=== PATIENT | female | born 1970 | race Caucasian/White ===

== ENCOUNTER 2016-12-27 09:10 | Emergency (ER) | payer BC, OTHER ==
[~2016-12-27] VITALS: Ht 167.6 cm; Wt 104.3 kg
[~2016-12-27 09:10] MED LIST: KCL; LASIX; LEVOTHYROXIN; TYLENOL AND ADVIL
[2016-12-27 09:12] VITALS: BP 119/69
--- NOTE | 2016-12-27 09:13 | NUR ---
Patient ambulated to bed 3. RN evaluating patient at bedside.
[2016-12-27] MEDS ORDERED: SYNTHROID0.125 MG PO (09:17)
[2016-12-27] MEDS ORDERED: ACIPHEX20 M1 PO (09:17)
--- NOTE | 2016-12-27 09:21 | NUR ---
PATIENT PRESENTS TO ED WITH A PRODUCTIVE COUGH X5 DAYS . PT STATES, SHE FEELS SHE ON AND OFF FEVER WELL. . DENIES N/V/D; SKIN IS PINK/WARM/DRY; AAOX4 WITH EVEN AND STEADY GAIT; LUNGS CLEAR BL; HR EVEN AND REGULAR; PATIENT STATES PAIN OF 0/10 AT THIS TIME; VSS; PATIENT POSITIONED FOR COMFORT; HOB ELEVATED; BEDRAILS UP X2; BED DOWN. ER MD MADE AWARE OF PT STATUS. AWAITS MD TUTTLE
[2016-12-27] MEDS ORDERED: KETOROLAC 30 MG/ML VIAL IM ONE (10:15)
[2016-12-27] MEDS ORDERED: PROMETH/CODEINE 6.25-10MG/5ML 5 ML UDC PO ONE (10:15)
--- NOTE | 2016-12-27 10:43 | NUR ---
INFLUENZA SWAB COLLECTED
--- NOTE | 2016-12-27 11:27 | NUR ---
SEMI-FOLWER'S, NO ACTIVE COUGHING NOTED AT THIS TIME--ADMITS BREATHING A LITTLE EASIER--- AWAITS LAB RESULTS--
--- NOTE | 2016-12-27 11:48 | NUR ---
Patient discharged with v/s stable. Written and verbal after care instructions given and explained. Patient alert, oriented and verbalized understanding of instructions. Ambulatory with steady gait. All questions addressed prior to discharge. ID band removed. Patient advised to follow up with PMD. Rx of AZITHROMYCIN/ CODEINE/PROMETHAZINE given. Patient educated on indication of medication including possible reaction and side effects. Opportunity to ask questions provided and answered.
[2016-12-27 11:49] VITALS: BP 132/76
== END 2016-12-27 11:48 | disposition home or self-care (01) ==
LOC: MED 09:10
DX: J40 Bronchitis, not specified as acute or chronic (principal); J02.9 Acute pharyngitis, unspecified; K21.9 Gastro-esophageal reflux disease without esophagitis; E03.9 Hypothyroidism, unspecified; Z88.0 Allergy status to penicillin
CPT/HCPCS: 36415; 71010; 81002; 81025; 87804; 96372; 99285; J1885; Q0092

== ENCOUNTER 2017-04-23 16:08 | Emergency (ER) | payer BC ==
[~2017-04-23] VITALS: Ht 167.6 cm; Wt 102.5 kg
[~2017-04-23 16:08] MED LIST changes: -KCL; -LASIX; +LEVO0.124 PO; +RABE20EC PO
[2017-04-23 16:31] VITALS: BP 152/94
--- NOTE | 2017-04-23 19:35 | NUR ---
PT TAKEN TO OF2
--- NOTE | 2017-04-23 19:48 | NUR ---
Dr. Hartley evaluating patient
[2017-04-23] MEDS ORDERED: KETOROLAC 60 MG/2 ML VIAL IM ONE (19:55)
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
[2017-04-23 21:12] VITALS: BP 122/79
== END 2017-04-23 21:12 | disposition home or self-care (01) ==
LOC: MED 16:08
DX: S16.1XXA Strain of muscle, fascia and tendon at neck level, initial encounter (principal); S46.912A Strain of unspecified muscle, fascia and tendon at shoulder and upper arm level, left arm, initial encounter; S46.911A Strain of unspecified muscle, fascia and tendon at shoulder and upper arm level, right arm, initial encounter; K21.9 Gastro-esophageal reflux disease without esophagitis; E03.9 Hypothyroidism, unspecified; Z88.0 Allergy status to penicillin; V89.2XXA Person injured in unspecified motor-vehicle accident, traffic, initial encounter; Y93.89 Activity, other specified; Y92.828 Other wilderness area as the place of occurrence of the external cause; Y99.8 Other external cause status
CPT/HCPCS: 72040; 73030; 96372; 99284; J1885

== ENCOUNTER 2018-03-21 16:36 | Emergency (ER) | payer BC ==
[~2018-03-21] VITALS: Ht 170.2 cm; Wt 102.5 kg
[~2018-03-21 16:36] MED LIST changes: -RABE20EC PO; +RABE20EC17 PO
[2018-03-21 16:38] VITALS: BP 116/83
--- NOTE | 2018-03-21 16:49 | NUR ---
47/F BIB SELF C/O VOMITING X 14 DAYS, EJD DONE THIS MORNING.PT CAME HERE 6 DAYS AGO WITH SAME S/S. PT STATED BM: LOOSE STOOL X TODAY. HX; FATTY LIVER, CHOLECYSTECTOMY, MITCHEL RENAL CYSTS. SKIN IS PINK/WARM/DRY; AAOX4 WITH EVEN AND STEADY GAIT; LUNGS CLEAR BL. PATIENT STATES PAIN OF 05/01 AT THIS TIME. PATIENT POSITIONED FOR COMFORT; HOB ELEVATED; BEDRAILS UP X2; BED DOWN. ER MADE AWARE OF PT STATUS. Addendum: 03/21/18 at 1655 by [email or web address] C/O EPIGASTRIC PAIN RADIATING TO RUQ ABDOMINAL PAIN 05/01.
--- NOTE | 2018-03-21 17:00 | NUR ---
Patient being evaluated by DR MALONE at bedside.
[2018-03-21] MEDS ORDERED: NACL 0.9% 1,000 ML IV ONE (17:05)
[2018-03-21] MEDS ORDERED: PROCHLORPERAZINE 10 MG/2 ML VIAL IVP ONE (17:05)
--- NOTE | 2018-03-21 17:14 | NUR ---
LAB AT BEDSIDE.
[2018-03-21 17:33] LABS: BASOPHILS # (AUTO) 0.1 K/uL (0.00-0.22); BASOPHILS % (AUTO) 0.8 % (0.0-2.0); EOSINOPHILS # (AUTO) 0.2 K/uL (0-0.4); EOSINOPHILS % (AUTO) 1.9 % (0.0-4.0); HEMATOCRIT 42.5 % (36-48); HEMOGLOBIN 14.3 g/dL (12.0-16.0); LYMPHOCYTES # (AUTO) 3.4 K/uL (2.5-16.5); LYMPHOCYTES % (AUTO) 34.1 % (20.5-51.1); MEAN CORPUSCULAR HEMOGLOBIN 31 pg (27-31); MEAN CORPUSCULAR HGB CONC 34 g/dL (33-37); MEAN CORPUSCULAR VOLUME 93.2 fL (80-94); MONOCYTES # (AUTO) 0.8 K/uL (0.8-1.0); MONOCYTES % (AUTO) 7.7 % (1.7-9.3); NEUTROPHILS # (AUTO) 5.5 K/uL (1.8-7.7); NEUTROPHILS % (AUTO) 55.5 % (42.2-75.2); PLATELET COUNT (AUTO) 293 K/uL (140-450); RED BLOOD CELL COUNT(AUTO) 4.57 MIL/uL (4.20-5.40); WHITE BLOOD COUNT (AUTO) 9.9 K/uL (4.8-10.8)
[2018-03-21 17:40] LABS: ANION GAP 13.3 (8-16); CARBON DIOXIDE 27.7 mmol/L (21-32); CREATININE 0.7 mg/dL (0.6-1.3)
--- NOTE | 2018-03-21 17:42 | NUR ---
PT RETURNED FROM CT.
[2018-03-21 17:46] LABS: ALBUMIN 3.4 g/dL (3.4-5.0); TOTAL BILIRUBIN 0.4 mg/dL (0.0-1.0)
--- NOTE | 2018-03-21 18:09 | NUR ---
Patient discharged with v/s stable. Written and verbal after care instructions given and explained. Patient alert, oriented and verbalized understanding of instructions. Ambulatory with steady gait. All questions addressed prior to discharge. ID band removed. Patient advised to follow up with PMD. Rx of PROCHLORPERAZINE given. Patient educated on indication of medication including possible reaction and side effects. Opportunity to ask questions provided and answered.
[2018-03-21 18:10] VITALS: BP 105/63
[2018-03-21 21:50] LABS: APPEARANCE,URINE CLEAR (CLEAR); BILIRUBIN,URINE NEGATIVE (NEGATIVE); BLOOD, URINE NEGATIVE (NEGATIVE); LEUKOCYTE ESTERASE ,URINE NEGATIVE (NEGATIVE); NITRITE, URINE NEGATIVE (NEGATIVE); PH,URINE 7.5 (5.0-9.0); UGLUCOSE NEGATIVE (NEGATIVE)
[2018-03-21 21:51] LABS: COLOR,URINE STRAW (YELLOW)
== END 2018-03-21 18:09 | disposition home or self-care (01) ==
LOC: MED 16:36
DX: R11.2 Nausea with vomiting, unspecified (principal); R10.9 Unspecified abdominal pain; K76.0 Fatty (change of) liver, not elsewhere classified; R74.0 Nonspecific elevation of levels of transaminase and lactic acid dehydrogenase [LDH]; J45.909 Unspecified asthma, uncomplicated; I10 Essential (primary) hypertension; E03.9 Hypothyroidism, unspecified; Z90.89 Acquired absence of other organs; Z90.710 Acquired absence of both cervix and uterus; Z88.0 Allergy status to penicillin; Z88.2 Allergy status to sulfonamides
CPT/HCPCS: 36415; 74176; 80053; 81003; 81025; 83690; 85025; 96361; 96374; 99285; J0780; J7030

== ENCOUNTER 2018-07-26 10:58 | Inpatient (IN) | payer BC ==
[~2018-07-26] VITALS: Ht 167.6 cm; Wt 103.0 kg
[2018-07-26 11:09] VITALS: BP 122/76
--- NOTE | 2018-07-26 11:10 | NUR ---
PT AMB TO BED 11
--- NOTE | 2018-07-26 11:15 | NUR ---
48Y/F BIB SELF C/O PERSISTANT DRY COUGH X OCT 2017; INTERMITTENT LEFT ANTERIOR CHEST WALL PRESSURE PAIN X 2 DAYS , SOB, DIAPHORETIC; FULL CLEAR SPEECH, SKIN WARM DRY TO TOUCH, NO ACCESSORY MUSCLE USE NOTED AT THIS TIME, NO PEDAL EDEMA OR JVD; SEEN BY HER GI MD AND HAD EGD AND SWALLOW STUDY 2 TO COUGH; BED DOWN; BEDRAIL UP X 1; ER MD AWARE AND NOTIFIED OF PT STATUS. HX---HTN, GERD, FIBROMYALGIA, THYROID, ASTHMA RX---LOTENSIN 20MG QD, Rabeprazole 40MG QD, CYMBALTA 30MG QD, LEVOTHYROXINE 150MCG QD, SINGULAR 10MG HS, ALBUTEROL, PREMARIN 0.625MG QD, MAGNESIUM OXIDE 400MG QD
[2018-07-26] MEDS ORDERED: methylPREDNISolone SS 125 MG/2 ML VIAL IVP ONE (12:10)
[2018-07-26] MEDS ORDERED: KETOROLAC 30 MG/ML VIAL IVP ONE (12:10)
[2018-07-26] MEDS ORDERED: ALBUTEROL SULFATE/IPRATROPIU 3 ML SOL IH ONE (12:10)
[2018-07-26] MEDS ORDERED: LORazepam 2 MG/ML VIAL IVP ONE (12:10)
[2018-07-26 12:36] LABS: BASOPHILS # (AUTO) 0.1 K/uL (0.00-0.22); BASOPHILS % (AUTO) 0.7 % (0.0-2.0); EOSINOPHILS # (AUTO) 0.2 K/uL (0-0.4); EOSINOPHILS % (AUTO) 1.9 % (0.0-4.0); HEMATOCRIT 40.3 % (36-48); HEMOGLOBIN 13.6 g/dL (12.0-16.0); LYMPHOCYTES # (AUTO) 3.5 K/uL (2.5-16.5); LYMPHOCYTES % (AUTO) 37.5 % (20.5-51.1); MEAN CORPUSCULAR HEMOGLOBIN 31 pg (27-31); MEAN CORPUSCULAR HGB CONC 34 g/dL (33-37); MEAN CORPUSCULAR VOLUME 91.9 fL (80-94); MONOCYTES # (AUTO) 0.6 K/uL (0.8-1.0); MONOCYTES % (AUTO) 6.7 % (1.7-9.3); NEUTROPHILS # (AUTO) 4.9 K/uL (1.8-7.7); NEUTROPHILS % (AUTO) 53.2 % (42.2-75.2); PLATELET COUNT (AUTO) 258 K/uL (140-450); RED BLOOD CELL COUNT(AUTO) 4.39 MIL/uL (4.20-5.40); RED CELL DISTRIBUTION WIDTH 13.4 % (11.6-13.7); WHITE BLOOD COUNT (AUTO) 9.3 K/uL (4.8-10.8)
--- NOTE | 2018-07-26 12:42 | NUR ---
ativan 1mg given ivp; waste 1mg
[2018-07-26 12:58] LABS: ALBUMIN 3.3 g/dL (3.4-5.0); ANION GAP 7.5 (8-16); CARBON DIOXIDE 31.6 mmol/L (21-32); CREATININE 0.8 mg/dL (0.6-1.3); POTASSIUM 4.1 mmol/L (3.5-5.1); TOTAL BILIRUBIN 0.4 mg/dL (0.0-1.0)
[2018-07-26 13:22] LABS: PROTHROMBIN TIME 9.9 secs (10.8-13.4)
[2018-07-26] MEDS ORDERED: HYDROcodone/APAP 7.5/325 MG 1 TAB PO PRN (16:00)
[2018-07-26] MEDS ORDERED: ACETAMINOPHEN 325 MG TAB PO PRN (16:00)
[2018-07-26] MEDS ORDERED: KETOROLAC 15 MG/ML VIAL IVP PRN (16:00)
[2018-07-26] MEDS ORDERED: ONDANSETRON 4 MG/2 ML VIAL IM/IVP PRN (16:00)
[2018-07-26] MEDS ORDERED: DOCUSATE SODIUM 100 MG GELCAP PO PRN (16:00)
--- NOTE | 2018-07-26 16:24 | NUR ---
Patient will be admitted to care of DR. MCKEON. Admited to [facility]. Will go to room 111A. Belongings list completed.
--- NOTE | 2018-07-26 16:24 | NUR ---
REPORT GIVEN TO SHERI HOLMAN, MED SURG
[2018-07-26 16:30] VITALS: BP 124/73
--- NOTE | 2018-07-26 16:30 | NUR ---
PATIENT ARRIVED ON UNIT VIA [facility]. PATIENT ABLE TO AMBULATE FROM [facility] TO TELEMETRY BED. APPLIED PATIENT'S TELE MONITOR. PATIENT HAS AN IV SITE NOTED ON HER RIGHT AC 20G SL. PATIENT DOES NOT COMPLAIN OF ANY PAIN. NO SIGNS OF COUGH. PER ER NURSE MELISSA'S REPORT PATIENT HAS A DRY UNPRODUCTIVE COUGH. NO DISTRESS NOTED AT THIS TIME. PATIENT'S VITAL SIGNS WITHIN NORMAL LIMITS. WILL CONTINUE TO MONITOR PATIENT.
[2018-07-26] MEDS: NACL 0.9% 1,000 ML IV SCH (16:34)
--- NOTE | 2018-07-26 16:38 | NUR ---
DR. PLASENCIA ASSESSING PATIENT AT THIS TIME. PATIENT IS ALERT AND ORIENTED X4. WILL CONTINUE TO MONITOR PATIENT.
[2018-07-26 16:47] LABS: CHOL/HDL RATIO 4.5 (1-4.5); MAGNESIUM 1.7 mg/dL (1.8-2.4); PHOSPHORUS 3.7 mg/dL (2.5-4.9); THYROID STIMULATING HORMONE 0.08 uIU/mL (0.34-3.74)
[2018-07-26] MEDS ORDERED: ALBUTEROL SULFATE/IPRATROPIU 3 ML SOL INH PRN (16:50)
[2018-07-26] MEDS ORDERED: PROMETH/CODEINE 6.25-10MG/5ML 5 ML UDC PO PRN (16:50)
[2018-07-26] MEDS ORDERED: LORATADINE 10 MG TAB PO SCH (16:56)
[2018-07-26] MEDS ORDERED: ATORVASTATIN 20 MG TAB PO SCH (17:00)
[2018-07-26] MEDS ORDERED: ASPIRIN 325 MG TAB PO SCH (17:00)
[2018-07-26] MEDS ORDERED: MONT10TA35 PO (18:16)
[2018-07-26] MEDS ORDERED: MAGN241.1 PO (18:16)
[2018-07-26] MEDS ORDERED: DULO30EC PO (18:16)
[2018-07-26] MEDS ORDERED: ORE25 PO (18:16)
[2018-07-26] MEDS ORDERED: BENA20TA11 PO (18:16)
[2018-07-26] MEDS ORDERED: PRE.625 PO (18:16)
[2018-07-26] MEDS ORDERED: PHEN30CA15 PO (18:16)
[2018-07-26] MEDS ORDERED: LEVO0.155 PO (18:16)
[2018-07-26] MEDS: ALBUTEROL SULFATE/IPRATROPIU 3 ML SOL IH SCH (19:17)
--- NOTE | 2018-07-26 19:20 | NUR ---
STOP THE HHN TX, DUE TO HR INCREASED TO FAST, AND PT COME TO ER WITH HR PALPITATION AND AFTER COUPLE MIN AFTER THE TX SHE FELT THE SAME.
--- NOTE | 2018-07-26 19:30 | NUR ---
GAVE REPORT TO NIGHTSHIFT NURSE AT BEDSIDE. PATIENT IS IN STABLE CONDITION.
[2018-07-26 20:15] VITALS: BP 107/58
--- NOTE | 2018-07-26 20:15 | NUR ---
SEEN PT AWAKE, ALERT AND ORIENTED RESTING IN BED. PT STATES SHE WAS SWEATING A LOT EARLIER BUT NOT RIGHT NOW. INITIAL ASSESSMENT DONE. PT'S COUGHING IN BETWEEN CONVERSATION. PT SAID SHE HAS PRODUCTIVE COUGH. VITAL SIGNS CHECKED. PT DENIES ANY DISCOMFORT AT THIS TIME. SAFETY ENSURED. SEQUENTIAL CONNECTED AND TURNED ON. CALL LIGHT W/IN REACH.
[2018-07-26] MEDS: guaiFENesin 600 MG TABER PO SCH (20:55)
[2018-07-26] MEDS: MONTELUKAST SODIUM 10 MG TAB PO SCH (20:55)
--- NOTE | 2018-07-26 20:55 | NUR ---
SEEN PT AWAKE. MEDICATIONS GIVEN ORDERED. TEACHINGS PROVIDED. PT STATES SHE'S SWEATING AGAIN. ASKED PT IF ON ANY NEW MEDICATIONS LIKE HORMONE PILL. SHE SAID THE PREMARIN WAS PRESCRIBED DUE TO HER HOT FLUSHES BECAUSE SHE'S ON HER MENOPAUSAL RIGHT NOW. BUT SHE SAID, SHE STARTED ON IT 6 WEEKS AGO ALREADY. PT STILL COUGHING. OFFERED PHENERGAN W/ CODEINE AND SAID "I'D LIKE TO HAVE IT BECAUSE I'M GOING TO SLEEP."
--- NOTE | 2018-07-26 22:58 | NUR ---
PT CALLED AND SEEN. PT STATES SHE HASN'T STOP COUGHING SINCE THE LAST TIME SHE TOOK HER COUGH MEDICINE AND IF THERE'S ANY OTHER MEDICINE THAT SHE COULD TAKE BECAUSE SHE CAN'T SLEEP FROM TOO MUCH COUGHING. WILL NOTIFY .
--- NOTE | 2018-07-26 23:00 | NUR ---
SPOKE TO DR SANTANA RESIDENT REGARDING PT'S CONCERN AND SHE SAID, "I'LL TAKE A LOOK AT HER MEDICATIONS SOON I'M DONE W/ THE NEW PATIENT." WILL INFORM PT.
[2018-07-27] MEDS ORDERED: BENZONATATE 100 MG CAPLF PO PRN (00:25)
--- NOTE | 2018-07-27 00:30 | NUR ---
SPOKE TO DR SANTANA (RESIDENT) REGARDING FOLLOW UP ON PT'S COUGH SITUATION. SHE SAID SHE'LL ASK HER PROOFREADER.
[2018-07-27 00:50] VITALS: BP 100/61
[2018-07-27] MEDS: guaiFENesin 20 MG/ML UDC PO PRN ×2 (00:58→06:00)
[2018-07-27] MEDS: NACL 0.9% 1,000 ML IV SCH ×3 (03:23→21:04)
[2018-07-27 03:30] VITALS: BP 111/70
--- NOTE | 2018-07-27 03:30 | NUR ---
SEEN PT ASLEEP BUT EASILY AROUSABLE. PT STARTS TO COMPLAIN OF CHEST PAIN. VITAL SIGNS CHECKED. PT MEDICATED W/ TORADOL IVP ORDERED. PT KEPT COMFORTABLE. WILL CONTINUE TO MONITOR.
--- NOTE | 2018-07-27 05:58 | NUR ---
SEEN PT ASLEEP BUT EASILY AROUSABLE. PT GIVEN SYNTHROID AND PT ASKED FRO COUGH SYRUP. PT GIVEN MEDICATION ORDERED W/ TEACHINGS. PT DENIES ANY OTHER NEEDS.
[2018-07-27 06:21] LABS: T4 (THYROXINE) 10.6 ug/dL (4.5-12.0)
[2018-07-27] MEDS ORDERED: LEVOTHYROXINE 0.075 MG TAB PO SCH (06:30)
[2018-07-27] MEDS ORDERED: LEVOTHYROXINE 0.025 MG TAB PO SCH ×2 (06:30)
[2018-07-27] MEDS ORDERED: LEVOTHYROXINE 0.025 MG, LEVOTHYROXINE 0.1 MG PO SCH ×2 (06:30)
--- NOTE | 2018-07-27 07:20 | NUR ---
REPORT GIVEN TO DAYSHIFT NURSE.
[2018-07-27 07:23] LABS: HEMATOCRIT 38.6 % (36-48); HEMOGLOBIN 12.9 g/dL (12.0-16.0); MEAN CORPUSCULAR HEMOGLOBIN 31 pg (27-31); MEAN CORPUSCULAR HGB CONC 33 g/dL (33-37); MEAN CORPUSCULAR VOLUME 92.2 fL (80-94); PLATELET COUNT (AUTO) 282 K/uL (140-450); RED BLOOD CELL COUNT(AUTO) 4.19 MIL/uL (4.20-5.40); RED CELL DISTRIBUTION WIDTH 13.6 % (11.6-13.7)
[2018-07-27 07:26] LABS: ANION GAP 10.4 (8-16); CARBON DIOXIDE 25.7 mmol/L (21-32); CREATININE 0.6 mg/dL (0.6-1.3); POTASSIUM 4.1 mmol/L (3.5-5.1)
--- NOTE | 2018-07-27 07:55 | NUR ---
PATIENT AWAKE, ALERT. RESPIRATION EVEN, UNLABOR ON ROOM AIR. SKIN DRY AND WARM ON THE TOUCH. IV PATENT AND INTACT. DENIED CP, SOB AT THIS TIME. LUNGS SOUND CLEAR THROUGHOUT. BOWEL SOUND ACTIVE. PLAN OF CARE WAS DISCUSSED WITH PATIENT. BED AT LOW POSITION, SIDE RAILS UP. CALL LIGHT WITHIN REACH.
[2018-07-27 08:00] VITALS: BP 109/61
[2018-07-27] MEDS: ALBUTEROL SULFATE/IPRATROPIU 3 ML SOL IH SCH ×2 (08:11→20:36)
[2018-07-27] MEDS: guaiFENesin 600 MG TABER PO SCH ×2 (08:50→21:01)
[2018-07-27] MEDS: DULoxetine 30 MG CAPDR PO SCH (08:51)
[2018-07-27] MEDS: ATORVASTATIN 20 MG TAB PO SCH (08:51)
[2018-07-27] MEDS: MAGNESIUM OXIDE 400 MG TAB PO SCH (08:51)
[2018-07-27] MEDS: HYDROCHLOROTHIAZIDE 25 MG TAB PO SCH (08:51)
[2018-07-27] MEDS: FAMOTIDINE 20 MG TAB PO SCH (08:51)
[2018-07-27] MEDS: LORATADINE 10 MG TAB PO SCH (08:51)
[2018-07-27] MEDS: ASPIRIN 81 MG TAB.CHEW PO SCH (08:52)
[2018-07-27] MEDS: PREMARIN 0.625 MG PO SCH (08:54)
[2018-07-27 08:59] LABS: LYMPHOCYTES % (MANUAL) 16 % (20-46); MONOCYTES % (MANUAL) 3 % (5-12)
[2018-07-27] MEDS ORDERED: BENAZEPRIL 20 MG TAB PO SCH (09:00)
[2018-07-27] MEDS ORDERED: ESTROGENS CONJUGATED 0.625 MG TAB PO SCH (09:00)
[2018-07-27] MEDS ORDERED: PHENTERMINE HCL 37.5 MG PO SCH (09:00)
--- NOTE | 2018-07-27 09:08 | NUR ---
PATIENT HAS BEEN SCREENED AND CATEGORIZED HIGH NUTRITION RISK. PATIENT WILL BE SEEN WITHIN 1-2 DAYS OF ADMISSION. 07/27/18 07/28/[address]
[2018-07-27] MEDS ORDERED: MAG SULF 2000 MG/WATER PREMIX 50 ML IV SCH (09:20)
--- NOTE | 2018-07-27 10:15 | NUR ---
PATIENT AWAKE, ALERT. RESPIRATION EVEN, UNLABOR ON ROOM AIR. NO DISTRESS NOTED AT THIS TIME. FAMILY AT BEDSIDE. CALL LIGHT WITHIN REACH
--- NOTE | 2018-07-27 11:44 | NUR ---
PATIENT AWAKE, ALERT. RESPIRATION EVEN, UNLABOR ON ROOM AIR. DENIED PAIN, SOB AT THIS TIME. CALL LIGHT WITHIN REACH. FAMILY AT BEDSIDE
[2018-07-27 12:00] VITALS: BP 125/69
--- NOTE | 2018-07-27 13:32 | NUR ---
CM NOTE PER CURRICULUM WRITER MARY JO PENDING REF# [id number] FAX REVIEWS TO [phone] PH# [phone]. ADMISSION CHART REVIEW DONE. INITIAL REVIEW FAXED TO [facility] [phone] PH# [phone].
--- NOTE | 2018-07-27 13:45 | NUR ---
PATIENT AWAKE, ALERT. COMPLAINED OF SOB. SINUS TACH ON CYTOLOGY SUPERVISOR. PATIENT WAS PLACED ON O2 2L VIA NASAL CANNULA. WILL CONTINUE TO MONITOR
--- NOTE | 2018-07-27 15:20 | NUR ---
07/27/18 RD INITIAL ASSESSMENT COMPLETED PLEASE REFER TO NUTRITION ASSESSMENT UNDER CARE ACTIVITY FOR ESTIMATED NUTRITIONAL NEEDS. 1. RECOMMEND CCHO 60, CARDIAC DIET TOLERATED. 2. RECOMMEND GLUCERNA BID IF FOOD IS NOT TOLERATED. 3. RD TO FOLLOW-UP 5-7 DAYS, LOW RISK TENNILLE YAO, RD
[2018-07-27 16:00] VITALS: BP 107/64
--- NOTE | 2018-07-27 16:00 | NUR ---
PATIENT AWAKE, ALERT. RESPIRATION EVEN, UNLABOR ON 2L NC . DENIED PAIN, SOB. VS IS STABLE. NO DISTRESS NOTED AT THIS TIME. FAMILY AT BEDSIDE. CALL LIGHT WITHIN REACH
--- NOTE | 2018-07-27 18:15 | NUR ---
PATIENT AWAKE, ALERT. RESPIRATION EVEN, UNLABOR ON 2L NC. DENIED SOB, CP AT THIS TIME. NO DISTRESS NOTED. CALL LIGHT WITHIN REACH
--- NOTE | 2018-07-27 19:31 | NUR ---
RECEIVED REPORT FROM CÉSAR RN AT BEDSIDE FOR CONTINUITY OF CARE, PT IN STABLE CONDITION SITTING UP IN BED IV INTACT AND RUNNING N/S AT 100MLS/HR. PT HAS NO C/O OF PAIN AND FAMILY AT BEDSIDE.
--- NOTE | 2018-07-27 19:31 | NUR ---
ENDORSEMENT GIVEN TO COMMAND CENTER ANALYST NURSE. PATIENT IS STABLE AT THIS TIME
[2018-07-27 20:00] VITALS: BP 104/61
--- NOTE | 2018-07-27 21:00 | NUR ---
PT IN LOW BED, WITH CALL PLAZA IN REACH. PT C/O OF DRY COUGH INTERMITTENTLY. PT GIVEN MUCINEX FOR COUGH AND TO HELP LOOSEN PHGLEM. PT ALSO ORDERED SINGULAR FOR ASTHMA AND ALLERGIES. PT STILL HAS 2 L 02 VIA N/C, LUNGS CLEAR AND EXPANDED SYMMETRICALLY. PT DENIES PAIN, NO C/O VOICED. PT IV SITE FLUSHED PATEN. BED LOW CALL PLAZA IN REACH AND ALL REQUESTED NEEDS ATTENDED BY STAFF.
[2018-07-27] MEDS: MONTELUKAST SODIUM 10 MG TAB PO SCH (21:02)
--- NOTE | 2018-07-27 23:00 | NUR ---
PT SLEEPING SOUNDLY, CALL PLAZA IN REACH, FREQUENT CHECKS RENDERED.
[2018-07-28] VITALS: BP 105/62
--- NOTE | 2018-07-28 02:00 | NUR ---
PT SLEEPING SOUNDLY, CALL PLAZA IN REACH.
[2018-07-28 04:00] VITALS: BP 110/49
--- NOTE | 2018-07-28 04:00 | NUR ---
P R R MAX AWARE OF INCREASED WBC FROM PT LAB WORKS. UA ORDERED. PT V/S FOLLOWS T97.9 B/P /110/49 P 86 R 20 97%. PT MADE AWARE TO GIVE URINE FOR UA
--- NOTE | 2018-07-28 06:00 | NUR ---
PT C/O 7/10 PAIN GIVEN NORCO PO/PRN , PT C\O PAIN OF 7/10 HEADACHE. PT GIVEN PRN NORCO.
[2018-07-28] MEDS: NACL 0.9% 1,000 ML IV SCH (06:25)
[2018-07-28 06:29] LABS: BASOPHILS # (AUTO) 0.1 K/uL (0.00-0.22); BASOPHILS % (AUTO) 0.6 % (0.0-2.0); EOSINOPHILS # (AUTO) 0.3 K/uL (0-0.4); EOSINOPHILS % (AUTO) 2.2 % (0.0-4.0); HEMATOCRIT 35.9 % (36-48); HEMOGLOBIN 11.7 g/dL (12.0-16.0); LYMPHOCYTES % (AUTO) 45.9 % (20.5-51.1); MEAN CORPUSCULAR HEMOGLOBIN 30 pg (27-31); MEAN CORPUSCULAR HGB CONC 33 g/dL (33-37); MEAN CORPUSCULAR VOLUME 92.6 fL (80-94); MONOCYTES # (AUTO) 0.5 K/uL (0.8-1.0); MONOCYTES % (AUTO) 4.2 % (1.7-9.3); NEUTROPHILS # (AUTO) 6.2 K/uL (1.8-7.7); NEUTROPHILS % (AUTO) 47.1 % (42.2-75.2); PLATELET COUNT (AUTO) 240 K/uL (140-450); RED BLOOD CELL COUNT(AUTO) 3.87 MIL/uL (4.20-5.40); RED CELL DISTRIBUTION WIDTH 13.7 % (11.6-13.7)
--- NOTE | 2018-07-28 06:30 | NUR ---
PT VOMITED A MODERATE AMT OF BILE AND WAS GIVEN ZOFRAN IVP.
[2018-07-28 06:36] LABS: ANION GAP 7.5 (8-16); CARBON DIOXIDE 27.6 mmol/L (21-32); CREATININE 0.7 mg/dL (0.6-1.3); POTASSIUM 4.1 mmol/L (3.5-5.1)
[2018-07-28 06:46] LABS: MAGNESIUM 1.9 mg/dL (1.8-2.4); PHOSPHORUS 3.5 mg/dL (2.5-4.9)
[2018-07-28] MEDS: ALBUTEROL SULFATE/IPRATROPIU 3 ML SOL IH SCH (07:15)
--- NOTE | 2018-07-28 07:45 | NUR ---
PATIENT AWAKE, ALERT. RESPIRATION EVEN, UNLABOR ON ROOM AIR. SKIN DRY AND WARM. IV PATENT AND INTACT. NO DISTRESS NOTED AT THIS TIME. PLAN OF CARE WAS DISCUSSED WITH PATIENT. BED AT LOW POSITION, SIDE RAILS UP. CALL LIGHT WITHIN REACH.
[2018-07-28 07:53] LABS: APPEARANCE,URINE CLEAR (CLEAR); BILIRUBIN,URINE NEGATIVE (NEGATIVE); BLOOD, URINE NEGATIVE (NEGATIVE); COLOR,URINE YELLOW (YELLOW); LEUKOCYTE ESTERASE ,URINE TRACE (NEGATIVE); NITRITE, URINE NEGATIVE (NEGATIVE); UGLUCOSE NEGATIVE (NEGATIVE)
[2018-07-28] MEDS ORDERED: ATOR20TA40 PO (07:58)
[2018-07-28] MEDS ORDERED: ASPI81CT95 PO (07:58)
[2018-07-28 07:59] LABS: BARBITURATE, URINE NEG. ng/ml (NEG <=200); BENZODIAZEPINE, URINE NEG. ng/mL (NEG <=200); CANNABINOID, URINE NEG. ng/mL (NEG <=50); COCAINE, URINE NEG. ng/mL (NEG <=300); OPIATE, URINE NEG. ng/mL (NEG <=2000); PHENCYCLIDINE SCREEN,URINE NEG. ng/mL (NEG <=25)
[2018-07-28] MEDS ORDERED: LORA10TA19 PO (07:59)
[2018-07-28 08:00] VITALS: BP 131/62
[2018-07-28 08:03] LABS: RBC,URINE 0-5 (RARE) /HPF (0-5)
[2018-07-28] MEDS ORDERED: FAMO20TA13 PO (08:15)
[2018-07-28] MEDS: DULoxetine 30 MG CAPDR PO SCH (08:42)
[2018-07-28] MEDS: ATORVASTATIN 20 MG TAB PO SCH (08:42)
[2018-07-28] MEDS: MAGNESIUM OXIDE 400 MG TAB PO SCH (08:42)
[2018-07-28] MEDS: FAMOTIDINE 20 MG TAB PO SCH (08:42)
[2018-07-28] MEDS: guaiFENesin 600 MG TABER PO SCH (08:42)
[2018-07-28] MEDS: ASPIRIN 81 MG TAB.CHEW PO SCH (08:43)
[2018-07-28] MEDS: LORATADINE 10 MG TAB PO SCH (08:43)
[2018-07-28] MEDS: HYDROCHLOROTHIAZIDE 25 MG TAB PO SCH (08:43)
[2018-07-28] MEDS: PREMARIN 0.625 MG PO SCH (08:44)
--- NOTE | 2018-07-28 09:49 | NUR ---
DISCHARGE INSTRUCTION AND PRESCRIPTIONS WERE GIVEN AND EXPLAINED TO THE PATIENT. PATIENT VERBALIZED UNDERSTANDING. IV WAS REMOVED, CATHETER INTACT, NO ACTIVE BLEEDING SEEN. TOWEL HEMMER WAS REMOVED.
--- NOTE | 2018-07-28 10:04 | NUR ---
PATIENT WAS ESCORTED OUT BY STAFF. ALL BELONGINGS WERE TAKEN WITH THE PATIENT. PATIENT IS STABLE AT THIS TIME.
--- NOTE | 2018-07-29 07:50 | NUR ---
FAXED DISCHARGE SUMMARY TO [facility] [phone]
== END 2018-07-28 10:05 | disposition home or self-care (01) | DRG 204 ==
LOC: MED 10:58 → MTU 15:59
PROVIDERS: ADMIT General Practice; ATTEND General Practice
DX: R06.03 Acute respiratory distress (principal); R07.9 Chest pain, unspecified; J45.909 Unspecified asthma, uncomplicated; E03.9 Hypothyroidism, unspecified; K21.9 Gastro-esophageal reflux disease without esophagitis; F41.9 Anxiety disorder, unspecified; E66.01 Morbid (severe) obesity due to excess calories; T46.4X5A Adverse effect of angiotensin-converting-enzyme inhibitors, initial encounter; I11.9 Hypertensive heart disease without heart failure; M54.12 Radiculopathy, cervical region; K76.0 Fatty (change of) liver, not elsewhere classified; N28.1 Cyst of kidney, acquired; R74.0 Nonspecific elevation of levels of transaminase and lactic acid dehydrogenase [LDH]; Z88.0 Allergy status to penicillin; Z88.8 Allergy status to other drugs, medicaments and biological substances; Z79.899 Other long term (current) drug therapy; Z90.710 Acquired absence of both cervix and uterus; Z68.36 Body mass index [BMI] 36.0-36.9, adult; Y92.89 Other specified places as the place of occurrence of the external cause; Z87.01 Personal history of pneumonia (recurrent)
CPT/HCPCS: 36415; 71045; 76700; 80048; 80053; 80305; 81001; 83036; 83690; 83735; 83880; 84100; 84436; 84443; 84479; 84484; 85025; 85379; 85610; 85730; 87081; 87086; 93005; 94640; 96374; 96375; 99285; J1885; J2060; J2405; J2930; J3475; J7030; J7620; Q0092

== ENCOUNTER 2018-10-19 06:29 | Emergency (ER) | payer BC ==
[~2018-10-19] VITALS: Ht 170.2 cm; Wt 102.5 kg
[~2018-10-19 06:29] MED LIST changes: +ASPI81CT95 PO; +ATOR20TA40 PO; +DULO30EC PO; +FAMO20TA13 PO; -LEVO0.124 PO; -LEVOTHYROXIN; +LORA10TA19 PO; +MAGN241.1 PO; +MONT10TA35 PO; +ORE25 PO; +PRE.625 PO; -RABE20EC17 PO; -TYLENOL AND ADVIL
[2018-10-19 06:34] VITALS: BP 138/93
[2018-10-19 06:56] VITALS: BP 138/93
== END 2018-10-19 06:57 | disposition home or self-care (01) ==
LOC: MED 06:29
DX: T78.40XA Allergy, unspecified, initial encounter (principal); J45.909 Unspecified asthma, uncomplicated; E11.9 Type 2 diabetes mellitus without complications; I10 Essential (primary) hypertension; E03.9 Hypothyroidism, unspecified; Z79.84 Long term (current) use of oral hypoglycemic drugs; Z88.0 Allergy status to penicillin; Z88.2 Allergy status to sulfonamides; Z79.82 Long term (current) use of aspirin; Z79.899 Other long term (current) drug therapy; Z90.49 Acquired absence of other specified parts of digestive tract; Z90.710 Acquired absence of both cervix and uterus; X58.XXXA Exposure to other specified factors, initial encounter
CPT/HCPCS: 99283

== ENCOUNTER 2019-04-24 13:11 | Emergency (ER) | payer BC ==
[~2019-04-24] VITALS: Ht 170.2 cm; Wt 105.0 kg
[2019-04-24 13:16] VITALS: BP 136/84
--- NOTE | 2019-04-24 14:36 | NUR ---
PT ambulated to bed 05.
--- NOTE | 2019-04-24 14:40 | NUR ---
BIB SELF. AAO X4 C/O RT FLANK PAIN 910 RADIATING TO R LOWER ABDOMEN X 1 WEEK, DENIES TRAUMA NOTED. + NAUSEA, -VOMITING, -DIARRHEA. PT DENIES FEVER, SOB. PT STATES SHE GETS CHILLS AND SWEATY AT TIMES. HOB UP. BED SIDE RAILS UP X1. ON LOW BED POSITION ,LOCKED. ER MADE AWARE OF PT STATUS.
[2019-04-24] MEDS ORDERED: NACL 0.9% 1,000 ML IV SCH (15:15)
[2019-04-24] MEDS ORDERED: NACL 0.9% 1,000 ML IV ONE (15:15)
[2019-04-24] MEDS ORDERED: PROMETHAZINE 25 MG/ML VIAL IM ONE (15:15)
[2019-04-24] MEDS ORDERED: MORPHINE SULFATE 4 MG/ML SYR IVP ONE (15:15)
[2019-04-24] MEDS ORDERED: KETOROLAC 30 MG/ML VIAL IVP ONE (15:15)
--- NOTE | 2019-04-24 15:15 | NUR ---
DR NARAYAN AT BEDSIDE FOR PT EVALUATION
[2019-04-24 15:49] LABS: APPEARANCE,URINE SL CLOUDY (CLEAR); BILIRUBIN,URINE NEGATIVE (NEGATIVE); BLOOD, URINE NEGATIVE (NEGATIVE); COLOR,URINE YELLOW (YELLOW); LEUKOCYTE ESTERASE ,URINE TRACE (NEGATIVE); NITRITE, URINE NEGATIVE (NEGATIVE); PH,URINE 6.5 (5.0-9.0); UGLUCOSE NEGATIVE (NEGATIVE)
[2019-04-24 15:53] LABS: BASOPHILS # (AUTO) 0.1 K/uL (0.00-0.22); BASOPHILS % (AUTO) 0.8 % (0.0-2.0); EOSINOPHILS # (AUTO) 0.2 K/uL (0-0.4); EOSINOPHILS % (AUTO) 1.7 % (0.0-4.0); HEMATOCRIT 43.1 % (36-48); HEMOGLOBIN 14.4 g/dL (12.0-16.0); LYMPHOCYTES # (AUTO) 4.2 K/uL (2.5-16.5); MEAN CORPUSCULAR HEMOGLOBIN 31 pg (27-31); MEAN CORPUSCULAR HGB CONC 33 g/dL (33-37); MONOCYTES # (AUTO) 0.9 K/uL (0.8-1.0); MONOCYTES % (AUTO) 7.8 % (1.7-9.3); NEUTROPHILS # (AUTO) 5.8 K/uL (1.8-7.7); NEUTROPHILS % (AUTO) 51.7 % (42.2-75.2); PLATELET COUNT (AUTO) 314 K/uL (140-450); RED BLOOD CELL COUNT(AUTO) 4.68 MIL/uL (4.20-5.40); RED CELL DISTRIBUTION WIDTH 14.3 % (11.6-13.7); WHITE BLOOD COUNT (AUTO) 11.2 K/uL (4.8-10.8)
[2019-04-24 15:58] LABS: ANION GAP 12.1 (8-16); CREATININE 0.9 mg/dL (0.6-1.3); POTASSIUM 4.1 mmol/L (3.5-5.1)
[2019-04-24 16:04] LABS: ALBUMIN 3.8 g/dL (3.4-5.0); TOTAL BILIRUBIN 0.6 mg/dL (0.0-1.0)
[2019-04-24 16:19] LABS: RBC,URINE 0-5 /HPF (0-5)
--- NOTE | 2019-04-24 19:15 | NUR ---
TPt report given to MANDA HIGHTOWER. Transfer of care at this time.
--- NOTE | 2019-04-24 19:16 | NUR ---
RECEIVED REPORT AT BEDSIDE FROM MANDA BLUM, PT RESTING IN BED. VSS.
[2019-04-24] MEDS ORDERED: LEVOFLOXACIN 500 MG TAB PO ONE (19:30)
--- NOTE | 2019-04-24 19:37 | NUR ---
Farzad lawrence in [facility] - 04/24/19 at [address] Waldron evaluating patient at bedside.
--- NOTE | 2019-04-24 19:38 | NUR ---
evaluating patient at bedside.
[2019-04-24 20:00] VITALS: BP 143/85
--- NOTE | 2019-04-24 20:00 | NUR ---
Patient discharged with v/s stable. Written and verbal after care instructions given and explained. Patient alert, oriented and verbalized understanding of instructions. Ambulatory with steady gait. All questions addressed prior to discharge. ID band removed. Patient advised to follow up with PMD. Rx of LEVAQUIN 500MG, TRAMADOL 50MG, FLOMAX 0.4MG given. Patient educated on indication of medication including possible reaction and side effects. Opportunity to ask questions provided and answered.
--- NOTE | 2019-04-27 12:21 | NUR ---
Late entry. 0.9 NS IV bolus completed at 1725. 0.9 NS IV 100 ml/hr infused until discharge at 1999.
== END 2019-04-24 20:00 | disposition home or self-care (01) ==
LOC: MED 13:11
DX: N39.0 Urinary tract infection, site not specified (principal); J45.909 Unspecified asthma, uncomplicated; E11.9 Type 2 diabetes mellitus without complications; I10 Essential (primary) hypertension; E03.9 Hypothyroidism, unspecified; Z79.82 Long term (current) use of aspirin; Z79.899 Other long term (current) drug therapy; Z88.0 Allergy status to penicillin; Z88.2 Allergy status to sulfonamides; Z79.84 Long term (current) use of oral hypoglycemic drugs; Z87.442 Personal history of urinary calculi
CPT/HCPCS: 36415; 74176; 80053; 81001; 81025; 82150; 82948; 83690; 84703; 85025; 87086; 96372; 96374; 96375; 99284; J1885; J2270; J2550; J7030

== ENCOUNTER 2019-08-16 15:20 | Emergency (ER) | payer BC ==
[~2019-08-16] VITALS: Ht 170.2 cm; Wt 108.0 kg
[~2019-08-16 15:20] MED LIST changes: -PRE.625 PO
[2019-08-16 15:30] VITALS: BP 108/78
[2019-08-16 16:03] VITALS: BP 110/70
== END 2019-08-16 16:04 | disposition home or self-care (01) ==
LOC: MED 15:20
DX: J06.9 Acute upper respiratory infection, unspecified (principal); J45.909 Unspecified asthma, uncomplicated; E11.9 Type 2 diabetes mellitus without complications; I10 Essential (primary) hypertension; Z79.899 Other long term (current) drug therapy; Z88.0 Allergy status to penicillin; Z88.2 Allergy status to sulfonamides
CPT/HCPCS: 99283

== ENCOUNTER 2019-09-08 15:06 | Emergency (ER) | payer BC ==
[~2019-09-08] VITALS: Ht 170.2 cm; Wt 108.9 kg
[2019-09-08 15:14] VITALS: BP 112/80
[2019-09-08] MEDS ORDERED: LEVO0.124 PO (15:21)
[2019-09-08] MEDS ORDERED: METF-350 PO (15:21)
--- NOTE | 2019-09-08 15:22 | NUR ---
TO LOBBY AWAITING BED IN ED
--- NOTE | 2019-09-08 15:35 | NUR ---
PATIENT AMBULATED TO BED 4.
--- NOTE | 2019-09-08 15:48 | NUR ---
BIB DAUGHTER 47 YR FEMALE W/ C/O FEVER, CHILLS, GEN BODY ACHE X 2 DAYS. TOOK TYLENOL W/O RELEIF. HX OF FIBROMYALGIA. RECHECKED TEMPERATURE 99.8 TEMPORAL. BED AT LOWEST SETTINGS, SIDE RAILS UP X2. COOLING MEASURES APPLIED
[2019-09-08] MEDS ORDERED: NACL 0.9% 1,000 ML IV ONE ×2 (17:15)
[2019-09-08] MEDS ORDERED: KETOROLAC 15 MG/ML VIAL IVP ONE (17:15)
[2019-09-08] MEDS ORDERED: LEVOFLOXACIN 500 MG/D5W PREMIX 100 ML IV ONE (17:15)
[2019-09-08 18:21] LABS: BASOPHILS # (AUTO) 0.1 K/uL (0.00-0.22); BASOPHILS % (AUTO) 0.4 % (0.0-2.0); EOSINOPHILS % (AUTO) 0.2 % (0.0-4.0); HEMATOCRIT 41.5 % (36-48); HEMOGLOBIN 13.6 g/dL (12.0-16.0); LYMPHOCYTES % (AUTO) 15.6 % (20.5-51.1); MEAN CORPUSCULAR HEMOGLOBIN 31 pg (27-31); MEAN CORPUSCULAR HGB CONC 33 g/dL (33-37); MEAN CORPUSCULAR VOLUME 93.7 fL (80-94); MONOCYTES # (AUTO) 1.4 K/uL (0.8-1.0); MONOCYTES % (AUTO) 10.7 % (1.7-9.3); NEUTROPHILS # (AUTO) 9.4 K/uL (1.8-7.7); NEUTROPHILS % (AUTO) 73.1 % (42.2-75.2); PLATELET COUNT (AUTO) 265 K/uL (140-450); RED BLOOD CELL COUNT(AUTO) 4.42 MIL/uL (4.20-5.40); RED CELL DISTRIBUTION WIDTH 14.9 % (11.6-13.7); WHITE BLOOD COUNT (AUTO) 12.8 K/uL (4.8-10.8)
[2019-09-08 19:04] LABS: ANION GAP 14.3 (8-16); CARBON DIOXIDE 24.8 mmol/L (21-32); POTASSIUM 4.1 mmol/L (3.5-5.1)
[2019-09-08 19:05] LABS: ALBUMIN 3.2 g/dL (3.4-5.0); CREATININE 0.9 mg/dL (0.6-1.3)
--- NOTE | 2019-09-08 19:08 | NUR ---
Report given to MANDA Calero
[2019-09-08 20:00] VITALS: BP 112/67
--- NOTE | 2019-09-08 20:00 | NUR ---
DISCHARGE PAPERS GIVEN TO PT. PT STAETES RELIEF. VSS. RX OF MOTRIN, TYLENOL AND CIPRO GIVEN. SIDE EFFECTS EXPLAINED. INSTRUCTED TO F/U WITH PCP AND WHEN TO RETURN TO ER. PT VERBALLIZED UNDERSTANDING OF DC INSTRUCTIONS. ALL QUESTIONS ANSWERED.
== END 2019-09-08 20:00 | disposition home or self-care (01) ==
LOC: MED 15:06
DX: N39.0 Urinary tract infection, site not specified (principal); J45.909 Unspecified asthma, uncomplicated; E11.9 Type 2 diabetes mellitus without complications; I10 Essential (primary) hypertension; Z86.39 Personal history of other endocrine, nutritional and metabolic disease; Z90.710 Acquired absence of both cervix and uterus; Z98.890 Other specified postprocedural states; Z79.899 Other long term (current) drug therapy; Z88.0 Allergy status to penicillin; Z88.2 Allergy status to sulfonamides; R00.0 Tachycardia, unspecified
CPT/HCPCS: 36415; 80053; 81002; 81025; 83605; 85025; 87040; 87086; 87186; 96365; 96375; 99283; J1885; J1956; J7030

== ENCOUNTER 2019-10-27 07:17 | Emergency (ER) | payer BC ==
[~2019-10-27] VITALS: Ht 170.2 cm; Wt 103.0 kg
[~2019-10-27 07:17] MED LIST changes: -ASPI81CT95 PO; -ATOR20TA40 PO; -FAMO20TA13 PO; +LEVO0.124 PO; -LORA10TA19 PO; +METF-350 PO; -MONT10TA35 PO; -ORE25 PO
[2019-10-27 07:28] VITALS: BP 106/72
--- NOTE | 2019-10-27 07:37 | NUR ---
PT C/O LOWER BACK TENDERNESS, SUPRAPUBIC PAIN, DYSURIA, +N/V X COUPLE DAYS. PAIN 8/10 AT THIS TIME. DENIES URINARY RETENTION. URINE COLORED ORANGE, NO FOUL ODOR. VS STABLE. PT ALERT AND AWAKE, AMBULATORY WITH STEADY GAIT. BED IS DOWN, LOCKED, BED RIAL X 1.
[2019-10-27] MEDS ORDERED: cefTRIAXone 1,000 MG VIAL ONE (07:49)
[2019-10-27] MEDS ORDERED: LIDOCAINE MPF 1% 5 ML ONE (07:50)
[2019-10-27] MEDS ORDERED: KETOROLAC 60 MG/2 ML VIAL IM ONE (07:50)
--- NOTE | 2019-10-27 07:56 | NUR ---
TORADOL IM L GLUTEAL AND ROCEPHIN IM R GLUTEAL ADMINISTERED PER VERBAL ORDER DOWNTIME AT THIS TIME, UNABLE TO DOCUMENT ON EMAR
--- NOTE | 2019-10-27 07:58 | NUR ---
DR ARORA AT BEDSIDE
--- NOTE | 2019-10-27 08:00 | NUR ---
Patient discharged BY DR ARORA. Written and verbal after care instructions given and explained BY DR ARORA. Patient Ambulatory with steady gait. ID band removed. Rx of CIPRO AND NAPROSYN given.
--- NOTE | 2019-10-27 08:00 | NUR ---
PT ADVISED TO STAY FOR ANOTHER 10 MIN TO MONITOR FOR ADVERSE REACTIONS AFTER MED ADMINISTRATION. PT REFUSED
== END 2019-10-27 08:00 | disposition home or self-care (01) ==
LOC: MED 07:17
DX: N39.0 Urinary tract infection, site not specified (principal); J45.909 Unspecified asthma, uncomplicated; I10 Essential (primary) hypertension; E03.9 Hypothyroidism, unspecified; F32.9 Major depressive disorder, single episode, unspecified; Z90.49 Acquired absence of other specified parts of digestive tract; Z90.710 Acquired absence of both cervix and uterus; Z79.84 Long term (current) use of oral hypoglycemic drugs; Z79.899 Other long term (current) drug therapy; Z88.0 Allergy status to penicillin; Z88.2 Allergy status to sulfonamides
CPT/HCPCS: 99283; J0696; J1885; J2001

== ENCOUNTER 2020-06-12 08:15 | Emergency (ER) | payer BC, SELFPAY ==
[~2020-06-12] VITALS: Ht 170.2 cm; Wt 77.1 kg
[2020-06-12 08:16] VITALS: BP 115/81
[2020-06-12 08:57] VITALS: BP 115/81
== END 2020-06-12 08:57 | disposition home or self-care (01) ==
LOC: MED 08:15
DX: M79.10 Myalgia, unspecified site (principal); J02.9 Acute pharyngitis, unspecified; R19.7 Diarrhea, unspecified; E11.8 Type 2 diabetes mellitus with unspecified complications; E03.9 Hypothyroidism, unspecified; I10 Essential (primary) hypertension; J45.909 Unspecified asthma, uncomplicated; Z20.828 Contact with and (suspected) exposure to other viral communicable diseases; Z88.0 Allergy status to penicillin; Z88.2 Allergy status to sulfonamides; Z79.899 Other long term (current) drug therapy
CPT/HCPCS: 99283; U0003

== ENCOUNTER 2022-09-25 09:21 | Emergency (ER) | payer BC ==
[~2022-09-25] VITALS: Ht 162.6 cm; Wt 56.7 kg
[2022-09-25 09:28] VITALS: BP 104/82
--- NOTE | 2022-09-25 09:40 | NUR ---
PT AMBULATED TO ER BED 7
--- NOTE | 2022-09-25 09:59 | NUR ---
Dr. Jennings evaluating patient at bedside.
--- NOTE | 2022-09-25 10:04 | NUR ---
52 y/o female bib self with c/o abdominal pain that radiates to left side of back x 11 days. Per patient, last time she had this pain she had kidney stones. Patient had UTI x 3 weeks ago and took antibiotic. Patient denies any dysuria, fever or chills. Patient had a tummy tuck last year. Medical History: Teresa's Disease NKDA
[2022-09-25] MEDS ORDERED: KETOROLAC 15 MG/ML VIAL IM ONE (10:10)
--- NOTE | 2022-09-25 10:21 | NUR ---
IV started, blood work obtained, walked to lab.
[2022-09-25] MEDS ORDERED: KETOROLAC 15 MG/ML VIAL IVP ONE (10:30)
[2022-09-25 10:59] LABS: BASOPHILS # (AUTO) 0.1 K/uL (0.00-0.22); BASOPHILS % (AUTO) 1.2 % (0.0-2.0); EOSINOPHILS # (AUTO) 0.1 K/uL (0-0.4); EOSINOPHILS % (AUTO) 1.8 % (0.0-4.0); HEMATOCRIT 37.3 % (36-48); HEMOGLOBIN 12.3 g/dL (12.0-16.0); LYMPHOCYTES # (AUTO) 2.6 K/uL (2.5-16.5); LYMPHOCYTES % (AUTO) 41.9 % (20.5-51.1); MEAN CORPUSCULAR HEMOGLOBIN 31 pg (27-31); MEAN CORPUSCULAR HGB CONC 33 g/dL (33-37); MEAN CORPUSCULAR VOLUME 92.4 fL (80-94); MONOCYTES # (AUTO) 0.4 K/uL (0.8-1.0); MONOCYTES % (AUTO) 6.5 % (1.7-9.3); NEUTROPHILS % (AUTO) 48.6 % (42.2-75.2); PLATELET COUNT (AUTO) 256 K/uL (140-450); RED BLOOD CELL COUNT(AUTO) 4.04 MIL/uL (4.20-5.40); RED CELL DISTRIBUTION WIDTH 13.3 % (11.6-13.7); WHITE BLOOD COUNT (AUTO) 6.2 K/uL (4.8-10.8)
[2022-09-25 11:13] LABS: ALBUMIN 3.8 g/dL (3.4-5.0); ANION GAP 11.8 (8-16); CARBON DIOXIDE 29.2 mmol/L (21-32); CREATININE 0.6 mg/dL (0.6-1.3); TOTAL BILIRUBIN 0.8 mg/dL (0.0-1.0)
[2022-09-25 11:26] LABS: APPEARANCE,URINE CLEAR (CLEAR); BILIRUBIN,URINE NEGATIVE (NEGATIVE); BLOOD, URINE NEGATIVE (NEGATIVE); COLOR,URINE YELLOW (YELLOW); LEUKOCYTE ESTERASE ,URINE NEGATIVE (NEGATIVE); NITRITE, URINE NEGATIVE (NEGATIVE); UGLUCOSE NEGATIVE (NEGATIVE)
--- NOTE | 2022-09-25 12:24 | NUR ---
Patient is sitting up on bed, respirations even and unlabored. All needs met by staff.
[2022-09-25] MEDS ORDERED: IBUP-1842 PO (13:19)
[2022-09-25 13:37] VITALS: BP 103/73
--- NOTE | 2022-09-25 13:37 | NUR ---
Patient discharged with v/s stable. Written and verbal after care instructions given. Patient alert, oriented and verbalized understanding of instructions. Ambulatory with steady gait. All questions addressed prior to discharge. ID band removed. Patient advised to follow up with PMD. Rx of Ibuprofen given. Opportunity to ask questions provided and answered.
--- NOTE | 2022-09-25 14:14 | NUR ---
The patient's care was reviewed and supervised by [facility], RN.
== END 2022-09-25 13:37 | disposition home or self-care (01) ==
LOC: MED 09:21
DX: R10.32 Left lower quadrant pain (principal); M54.50 Low back pain, unspecified; J45.909 Unspecified asthma, uncomplicated; E03.9 Hypothyroidism, unspecified; E11.9 Type 2 diabetes mellitus without complications; I10 Essential (primary) hypertension; Z88.0 Allergy status to penicillin; Z88.2 Allergy status to sulfonamides; Z79.899 Other long term (current) drug therapy; Z79.84 Long term (current) use of oral hypoglycemic drugs; Z90.49 Acquired absence of other specified parts of digestive tract; Z87.442 Personal history of urinary calculi; Z98.890 Other specified postprocedural states; Z90.710 Acquired absence of both cervix and uterus
CPT/HCPCS: 36415; 74177; 80053; 81003; 81025; 83690; 85025; 96374; 99285; J1885; Q9967

== ENCOUNTER 2022-09-28 05:54 | Emergency (ER) | payer BC ==
[~2022-09-28] VITALS: Ht 170.2 cm; Wt 59.0 kg
[~2022-09-28 05:54] MED LIST changes: +IBUP-1842 PO
[2022-09-28 05:59] VITALS: BP 114/85
--- NOTE | 2022-09-28 06:00 | NUR ---
TO BED AMBULATORY
--- NOTE | 2022-09-28 06:14 | NUR ---
52 YO F BIB SELF WITH C/C OF 6/10 RT FOOT PAIN S/P DROPPED A FULL WINE BOTTLE ON FOOT XSATURDAY. GLASS DID NOT BREAK. -DEFORMITIES -SWELLING. FULL ROM WITH PAIN. PEDAL PULSES STRONG/BILAT. HX:HYPOTHYRIODISM ALLERGIES:PCN ADN SULFA
[2022-09-28 06:18] VITALS: BP 114/85
--- NOTE | 2022-09-28 06:30 | NUR ---
PT AMBULATED TO AND BACK TO BED.
[2022-09-28] MEDS ORDERED: ACET-10509 PO (07:21)
--- NOTE | 2022-09-28 07:25 | NUR ---
ИРИНА WRAP X 1. + CMS
--- NOTE | 2022-09-28 07:28 | NUR ---
Patient discharged with v/s stable. Written and verbal after care instructions FOR RICE THERAPY FOR ROUTINE CARE OF INJURIES AND CONTUSION given and explained. Patient alert, oriented and verbalized understanding of instructions. Ambulatory with steady gait. All questions addressed prior to discharge. ID band removed. Patient advised to follow up with PMD. Rx of TYLENOL XTRA STRENGTH given.Opportunity to ask questions provided and answered.
== END 2022-09-28 07:28 | disposition home or self-care (01) ==
LOC: MED 05:54
DX: S90.31XA Contusion of right foot, initial encounter (principal); Z88.0 Allergy status to penicillin; Z88.1 Allergy status to other antibiotic agents; X58.XXXA Exposure to other specified factors, initial encounter; Y93.89 Activity, other specified; Y92.89 Other specified places as the place of occurrence of the external cause; Y99.8 Other external cause status
CPT/HCPCS: 73630; 99283; Q0092

== ENCOUNTER 2023-04-01 19:45 | Emergency (ER) | payer BC ==
[~2023-04-01] VITALS: Ht 170.2 cm; Wt 61.7 kg
[~2023-04-01 19:45] MED LIST changes: +ACET-10509 PO
[2023-04-01 20:10] VITALS: BP 125/65
--- NOTE | 2023-04-01 20:10 | NUR ---
TO BED AMBULATORY
[2023-04-01] MEDS ORDERED: NACL 0.9% 1,000 ML IV ONE (20:35)
[2023-04-01] MEDS ORDERED: methylPREDNISolone SS 125 MG/2 ML VIAL IVP ONE (20:35)
[2023-04-01] MEDS ORDERED: FAMOTIDINE 20 MG/2 ML VIAL IVP ONE (20:35)
[2023-04-01 20:58] LABS: BASOPHILS % (AUTO) 0.4 % (0.0-2.0); EOSINOPHILS # (AUTO) 0.1 K/uL (0-0.4); EOSINOPHILS % (AUTO) 1.6 % (0.0-4.0); HEMATOCRIT 36.1 % (36-48); LYMPHOCYTES # (AUTO) 3.4 K/uL (2.5-16.5); LYMPHOCYTES % (AUTO) 40.4 % (20.5-51.1); MEAN CORPUSCULAR HEMOGLOBIN 31 pg (27-31); MEAN CORPUSCULAR HGB CONC 33 g/dL (33-37); MEAN CORPUSCULAR VOLUME 92.1 fL (80-94); MONOCYTES # (AUTO) 0.6 K/uL (0.8-1.0); NEUTROPHILS # (AUTO) 4.3 K/uL (1.8-7.7); NEUTROPHILS % (AUTO) 50.6 % (42.2-75.2); PLATELET COUNT (AUTO) 283 K/uL (140-450); RED BLOOD CELL COUNT(AUTO) 3.92 MIL/uL (4.20-5.40); RED CELL DISTRIBUTION WIDTH 13.2 % (11.6-13.7); WHITE BLOOD COUNT (AUTO) 8.5 K/uL (4.8-10.8)
[2023-04-01 21:19] LABS: ALBUMIN 3.9 g/dL (3.4-5.0); ASPARTATE AMINOTRANSFERASE 23 U/L (15-37); CARBON DIOXIDE 31.5 mmol/L (21-32); CREATININE 0.8 mg/dL (0.6-1.3); GFR ARICAN-AMERICAN 98 mL/min (>90); GLUCOSE 103 mg/dL (74-106); TOTAL BILIRUBIN 0.3 mg/dL (0.0-1.0); UREA NITROGEN, BLOOD 14 mg/dL (7-18)
[2023-04-01 21:22] LABS: ANION GAP 7.3 (8-16); CHLORIDE 106 mmol/L (98-107); POTASSIUM 3.8 mmol/L (3.5-5.1); SODIUM SERUM 141 mmol/L (136-145)
[2023-04-01] MEDS ORDERED: PRED20TA5 PO (21:44)
--- NOTE | 2023-04-01 21:58 | NUR ---
STS IM FEELING BETTER, RASH SUBSIDED
[2023-04-02 00:47] VITALS: BP 101/70
--- NOTE | 2023-04-02 00:47 | NUR ---
Patient discharged with v/s stable. Written and verbal after care instructions given and explained. Patient verbalized understanding. Ambulatory with steady gait. All questions addressed prior to discharge. Advised to follow up with PMD.
== END 2023-04-02 00:47 | disposition home or self-care (01) ==
LOC: MED 19:45
DX: L50.9 Urticaria, unspecified (principal); R21 Rash and other nonspecific skin eruption; R07.89 Other chest pain; T37.8X5A Adverse effect of other specified systemic anti-infectives and antiparasitics, initial encounter; I10 Essential (primary) hypertension; E03.9 Hypothyroidism, unspecified; Z79.899 Other long term (current) drug therapy; Z79.1 Long term (current) use of non-steroidal anti-inflammatories (NSAID); Z88.0 Allergy status to penicillin; Z88.2 Allergy status to sulfonamides; Y92.89 Other specified places as the place of occurrence of the external cause
CPT/HCPCS: 36415; 71045; 80053; 84484; 85025; 93005; 96361; 96374; 96375; 99285; J2930; J3490; Q0092

== ENCOUNTER 2023-07-01 17:00 | Emergency (ER) | payer BC ==
[~2023-07-01] VITALS: Ht 170.2 cm; Wt 64.1 kg
[~2023-07-01 17:00] MED LIST changes: +PRED20TA5 PO
[2023-07-01 17:11] VITALS: BP 127/76; PULSE 75; RESP 20; TEMP 97.4; O2SAT 98
[2023-07-01 20:00] LABS: BASOPHILS # (AUTO) 0.1 K/uL (0.00-0.22); BASOPHILS % (AUTO) 0.9 % (0.0-2.0); EOSINOPHILS # (AUTO) 0.2 K/uL (0-0.4); EOSINOPHILS % (AUTO) 1.9 % (0.0-4.0); HEMATOCRIT 39.1 % (36-48); LYMPHOCYTES # (AUTO) 3.5 K/uL (2.5-16.5); LYMPHOCYTES % (AUTO) 43.2 % (20.5-51.1); MEAN CORPUSCULAR HEMOGLOBIN 31 pg (27-31); MEAN CORPUSCULAR HGB CONC 33 g/dL (33-37); MEAN CORPUSCULAR VOLUME 92.6 fL (80-94); MONOCYTES # (AUTO) 0.5 K/uL (0.8-1.0); MONOCYTES % (AUTO) 5.6 % (1.7-9.3); NEUTROPHILS % (AUTO) 48.4 % (42.2-75.2); PLATELET COUNT (AUTO) 298 K/uL (140-450); RED BLOOD CELL COUNT(AUTO) 4.22 MIL/uL (4.20-5.40); RED CELL DISTRIBUTION WIDTH 13.6 % (11.6-13.7); WHITE BLOOD COUNT (AUTO) 8.2 K/uL (4.8-10.8)
[2023-07-01 20:02] LABS: BILIRUBIN,URINE NEGATIVE (NEGATIVE); BLOOD, URINE NEGATIVE (NEGATIVE); COLOR,URINE YELLOW (YELLOW); LEUKOCYTE ESTERASE ,URINE 2+ (NEGATIVE); NITRITE, URINE POSITIVE (NEGATIVE); UGLUCOSE NEGATIVE (NEGATIVE)
[2023-07-01 20:04] LABS: APPEARANCE,URINE CLOUDY (CLEAR)
--- NOTE | 2023-07-01 20:05 | NUR ---
PT TAKEN TO BED 8
[2023-07-01 20:15] LABS: RBC,URINE 0-5 /HPF (0-5)
[2023-07-01 20:17] LABS: ANION GAP 12.9 (8-16); CARBON DIOXIDE 29.4 mmol/L (21-32); CREATININE 0.8 mg/dL (0.6-1.3); POTASSIUM 4.3 mmol/L (3.5-5.1); TOTAL BILIRUBIN 0.4 mg/dL (0.0-1.0)
[2023-07-01] MEDS: ONDANSETRON 4 MG ODT PO ONE (20:20)
[2023-07-01] MEDS: KETOROLAC 15 MG/ML VIAL IM ONE (20:20)
--- NOTE | 2023-07-01 20:37 | NUR ---
52 YO F BIB SELF C/O LEFT SIDED ABDOMINAL PAIN AND LEFT FLANK PAIN X 1 WEEK. +NAUSEA. -VOMITING/DIARRHEA. DENIES PAIN/BURNING WHEN URINATING. PT STATES PAIN 05/31. PT AXO4. BED IN LOWEST POSITION. CALL LIGHT WITHIN REACH. ALLERGIES: PENICILLINS, SULFA, NITROFURANTOIN PMHX: GASTRIC SURGERY X3 YEARS AGO
--- NOTE | 2023-07-01 20:45 | NUR ---
DR PUCKETT AT BEDSIDE
[2023-07-01] MEDS ORDERED: CEPH-588 PO (20:48)
[2023-07-01 20:54] VITALS: BP 105/64; PULSE 71; RESP 18; TEMP 98.4; O2SAT 99
== END 2023-07-01 20:52 | disposition home or self-care (01) ==
LOC: MED 17:00
DX: N10 Acute pyelonephritis (principal); E11.9 Type 2 diabetes mellitus without complications; I10 Essential (primary) hypertension; Z86.39 Personal history of other endocrine, nutritional and metabolic disease; Z98.890 Other specified postprocedural states; Z79.899 Other long term (current) drug therapy; Z79.2 Long term (current) use of antibiotics; Z79.1 Long term (current) use of non-steroidal anti-inflammatories (NSAID); Z88.0 Allergy status to penicillin; Z88.2 Allergy status to sulfonamides
CPT/HCPCS: 36415; 74176; 80053; 81001; 81025; 85025; 87086; 96372; 99285; J1885; Q0162

== ENCOUNTER 2024-04-20 14:05 | Inpatient (IN) | payer BC ==
[~2024-04-20] VITALS: Ht 170.2 cm; Wt 63.5 kg
[~2024-04-20 14:05] MED LIST changes: +CEPH-588 PO
[2024-04-20 14:17] VITALS: BP 91/65; PULSE 90; RESP 18; TEMP 98.1; O2SAT 97
[2024-04-20 14:50] LABS: APPEARANCE,URINE CLEAR (CLEAR); BILIRUBIN,URINE NEGATIVE (NEGATIVE); BLOOD, URINE NEGATIVE (NEGATIVE); COLOR,URINE YELLOW (YELLOW); LEUKOCYTE ESTERASE ,URINE NEGATIVE (NEGATIVE); NITRITE, URINE NEGATIVE (NEGATIVE); PROTEIN,URINE NEGATIVE (NEGATIVE); UGLUCOSE TRACE (NEGATIVE); UROBILINOGEN,URINE 0.2 EU/dL (0.2 - 1)
[2024-04-20] MEDS: KETOROLAC 30 MG/ML VIAL IM ONE (15:37)
[2024-04-20] MEDS: ONDANSETRON 4 MG ODT PO ONE (15:38)
[2024-04-20 16:06] LABS: BASOPHILS % (AUTO) 0.5 % (0.0-2.0); EOSINOPHILS # (AUTO) 0.1 K/uL (0-0.4); EOSINOPHILS % (AUTO) 1.4 % (0.0-4.0); HEMATOCRIT 37.8 % (36-48); HEMOGLOBIN 12.8 g/dL (12.0-16.0); LYMPHOCYTES # (AUTO) 3.6 K/uL (2.5-16.5); LYMPHOCYTES % (AUTO) 44.8 % (20.5-51.1); MEAN CORPUSCULAR HEMOGLOBIN 31 pg (27-31); MEAN CORPUSCULAR HGB CONC 34 g/dL (33-37); MONOCYTES # (AUTO) 0.6 K/uL (0.8-1.0); MONOCYTES % (AUTO) 6.9 % (1.7-9.3); NEUTROPHILS # (AUTO) 3.8 K/uL (1.8-7.7); NEUTROPHILS % (AUTO) 46.4 % (42.2-75.2); PLATELET COUNT (AUTO) 244 K/uL (140-450); RED BLOOD CELL COUNT(AUTO) 4.16 MIL/uL (4.20-5.40); RED CELL DISTRIBUTION WIDTH 13.4 % (11.6-13.7); WHITE BLOOD COUNT (AUTO) 8.1 K/uL (4.8-10.8)
[2024-04-20 16:32] LABS: ANION GAP 10.5 (8-16); CALCIUM 10.7 mg/dL (8.5-10.1); CARBON DIOXIDE 29.8 mmol/L (21-32); CREATININE 0.8 mg/dL (0.6-1.3); POTASSIUM 4.3 mmol/L (3.5-5.1)
[2024-04-20 16:38] LABS: ALBUMIN 3.8 g/dL (3.4-5.0); BILIRUBIN,DIRECT 0.2 mg/dL (0.0-0.3); TOTAL BILIRUBIN 0.8 mg/dL (0.0-1.0); TOTAL PROTEIN, SERUM 7.6 g/dL (6.4-8.2)
[2024-04-20] MEDS ORDERED: NACL 0.9% 1,000 ML IV SCH (17:10)
[2024-04-20] MEDS ORDERED: ONDANSETRON 4 MG/2 ML VIAL IVP PRN (17:25)
[2024-04-20] MEDS ORDERED: ALBUTEROL 0.083% 2.5 MG/3 ML NEBU INH PRN (17:25)
[2024-04-20] MEDS ORDERED: ACETAMINOPHEN 325 MG TAB PO PRN (17:25)
[2024-04-20] MEDS ORDERED: HYDROcodone/APAP 5/325 MG 1 TAB TAB PO PRN (17:25)
[2024-04-20] MEDS: NACL 0.9% 1,000 ML IV SCH (18:16)
[2024-04-20] MEDS: LEVOFLOXACIN 500 MG/D5W PREMIX 100 ML IV ONE (18:16)
[2024-04-20] MEDS: metroNIDAZOLE 500 MG/NS PREMIX 100 ML IV ONE (19:04)
[2024-04-20] MEDS: MORPHINE SULFATE 2 MG/ML SYR IVP PRN (19:10)
[2024-04-20] MEDS: metroNIDAZOLE 500 MG/NS PREMIX 100 ML IV SCH (21:04)
[2024-04-20] MEDS: PANTOPRAZOLE 40 MG INJ VIAL IVP SCH (21:05)
[2024-04-20 21:25] VITALS: BP 103/69; PULSE 18; PULSE 59; RESP 18; TEMP 97.5; O2SAT 98
[2024-04-20 21:45] VITALS: PULSE 59; RESP 18; O2SAT 98
[2024-04-21 04:00] VITALS: BP 92/69; PULSE 60; RESP 18; TEMP 97.4; O2SAT 97
[2024-04-21 06:49] LABS: BASOPHILS % (AUTO) 0.7 % (0.0-2.0); EOSINOPHILS # (AUTO) 0.1 K/uL (0-0.4); EOSINOPHILS % (AUTO) 2.3 % (0.0-4.0); HEMATOCRIT 31.3 % (36-48); HEMOGLOBIN 10.8 g/dL (12.0-16.0); LYMPHOCYTES % (AUTO) 53.1 % (20.5-51.1); MEAN CORPUSCULAR HEMOGLOBIN 31 pg (27-31); MEAN CORPUSCULAR HGB CONC 35 g/dL (33-37); MEAN CORPUSCULAR VOLUME 91.1 fL (80-94); MONOCYTES # (AUTO) 0.5 K/uL (0.8-1.0); MONOCYTES % (AUTO) 8.4 % (1.7-9.3); NEUTROPHILS % (AUTO) 35.5 % (42.2-75.2); PLATELET COUNT (AUTO) 195 K/uL (140-450); RED BLOOD CELL COUNT(AUTO) 3.44 MIL/uL (4.20-5.40); RED CELL DISTRIBUTION WIDTH 13.6 % (11.6-13.7); WHITE BLOOD COUNT (AUTO) 5.7 K/uL (4.8-10.8)
[2024-04-21 07:15] LABS: ANION GAP 11.2 (8-16); CALCIUM 9.1 mg/dL (8.5-10.1); CARBON DIOXIDE 27.9 mmol/L (21-32); CREATININE 0.8 mg/dL (0.6-1.3); POTASSIUM 4.1 mmol/L (3.5-5.1)
[2024-04-21 08:00] VITALS: BP 95/64; PULSE 66; RESP 18; TEMP 97; O2SAT 98
[2024-04-21] MEDS: KETOROLAC 30 MG/ML VIAL IVP PRN (08:40)
[2024-04-21] MEDS ORDERED: METR-520 PO (10:09)
[2024-04-21] MEDS ORDERED: BEN10 PO (10:09)
[2024-04-21] MEDS ORDERED: TRAM50TA3 PO (10:21)
[2024-04-21 10:28] VITALS: BP 95/64; PULSE 98; RESP 20; TEMP 97
[2024-04-21] MEDS ORDERED: LEVOFLOXACIN 500 MG/D5W PREMIX 100 ML IV SCH (21:00)
== END 2024-04-21 11:16 | disposition home or self-care (01) | DRG 392 ==
LOC: MED 14:05 → MTU 17:27
PROVIDERS: ADMIT Student in an Organized Health Care Education/Training Program; ATTEND Student in an Organized Health Care Education/Training Program
DX: K57.32 Diverticulitis of large intestine without perforation or abscess without bleeding (principal); I10 Essential (primary) hypertension; E11.9 Type 2 diabetes mellitus without complications; K52.9 Noninfective gastroenteritis and colitis, unspecified; Z88.0 Allergy status to penicillin; Z88.2 Allergy status to sulfonamides; Z98.84 Bariatric surgery status; Z90.710 Acquired absence of both cervix and uterus
CPT/HCPCS: 36415; 80048; 80076; 81003; 83690; 85025; 87081; 96365; 96367; 96372; 99285; C9113; J1885; J1956; J2270; J3490; Q0162

== ENCOUNTER 2024-05-28 15:59 | Emergency (ER) | payer BC ==
[~2024-05-28] VITALS: Ht 167.6 cm; Wt 65.8 kg
[~2024-05-28 15:59] MED LIST changes: -ACET-10509 PO; +BEN10 PO; -CEPH-588 PO; -DULO30EC PO; -IBUP-1842 PO; -MAGN241.1 PO; -METF-350 PO; +METR-520 PO; -PRED20TA5 PO; +TRAM50TA3 PO
[2024-05-28 16:04] VITALS: BP 108/79; PULSE 76; RESP 18; TEMP 98.2; O2SAT 99
[2024-05-28] MEDS: ACETAMINOPHEN EXTRA STRENGTH 500 MG TAB PO ONE (16:50)
[2024-05-28] MEDS: KETOROLAC 30 MG/ML VIAL IM ONE (16:52)
[2024-05-28 17:37] VITALS: BP 108/79; PULSE 76; RESP 18; TEMP 98.2; O2SAT 99
== END 2024-05-28 17:37 | disposition home or self-care (01) ==
LOC: MED 15:59
DX: M25.551 Pain in right hip (principal); M54.50 Low back pain, unspecified; E11.9 Type 2 diabetes mellitus without complications; K21.9 Gastro-esophageal reflux disease without esophagitis; I10 Essential (primary) hypertension; E03.9 Hypothyroidism, unspecified; Z79.899 Other long term (current) drug therapy; Z88.0 Allergy status to penicillin; Z88.2 Allergy status to sulfonamides; Z88.1 Allergy status to other antibiotic agents
CPT/HCPCS: 73502; 96372; 99283; J1885; Q0092

== ENCOUNTER 2024-09-01 19:28 | Emergency (ER) | payer BC ==
[~2024-09-01] VITALS: Ht 157.5 cm; Wt 63.5 kg
[2024-09-01 19:33] VITALS: BP 128/92; PULSE 103; RESP 16; TEMP 98.7; O2SAT 99
[2024-09-01 19:40] VITALS: O2SAT 99
[2024-09-01 21:36] LABS: BILIRUBIN,URINE NEGATIVE (NEGATIVE); BLOOD, URINE NEGATIVE (NEGATIVE); COLOR,URINE YELLOW (YELLOW); LEUKOCYTE ESTERASE ,URINE 1+ (NEGATIVE); NITRITE, URINE NEGATIVE (NEGATIVE); PROTEIN,URINE NEGATIVE (NEGATIVE); UGLUCOSE NEGATIVE (NEGATIVE); UROBILINOGEN,URINE 0.2 EU/dL (0.2 - 1)
[2024-09-01 21:37] LABS: APPEARANCE,URINE HAZY (CLEAR)
[2024-09-01 21:56] LABS: BACTERIA,URINE 2+ /HPF (None Seen); RBC,URINE NONE SEEN /HPF (0-5)
[2024-09-01] MEDS: KETOROLAC 60 MG/2 ML VIAL IM ONE (22:37)
[2024-09-01 22:48] LABS: BASOPHILS # (AUTO) 0.1 K/uL (0.00-0.22); BASOPHILS % (AUTO) 0.7 % (0.0-2.0); EOSINOPHILS # (AUTO) 0.1 K/uL (0-0.4); EOSINOPHILS % (AUTO) 1.2 % (0.0-4.0); LYMPHOCYTES # (AUTO) 3.4 K/uL (2.5-16.5); LYMPHOCYTES % (AUTO) 39.9 % (20.5-51.1); MEAN CORPUSCULAR HEMOGLOBIN 31 pg (27-31); MEAN CORPUSCULAR HGB CONC 33 g/dL (33-37); MEAN CORPUSCULAR VOLUME 92.7 fL (80-94); MONOCYTES # (AUTO) 0.7 K/uL (0.8-1.0); MONOCYTES % (AUTO) 8.4 % (1.7-9.3); NEUTROPHILS # (AUTO) 4.2 K/uL (1.8-7.7); NEUTROPHILS % (AUTO) 49.8 % (42.2-75.2); PLATELET COUNT (AUTO) 225 K/uL (140-450); RED BLOOD CELL COUNT(AUTO) 3.89 MIL/uL (4.20-5.40); RED CELL DISTRIBUTION WIDTH 13.3 % (11.6-13.7); WHITE BLOOD COUNT (AUTO) 8.4 K/uL (4.8-10.8)
[2024-09-01 23:01] LABS: ANION GAP 10.6 (8-16); CALCIUM 9.6 mg/dL (8.5-10.1); CARBON DIOXIDE 29.3 mmol/L (21-32); CREATININE 0.8 mg/dL (0.6-1.3); POTASSIUM 3.9 mmol/L (3.5-5.1)
[2024-09-01 23:04] LABS: ALBUMIN 3.5 g/dL (3.4-5.0); BILIRUBIN,DIRECT 0.2 mg/dL (0.0-0.3); TOTAL BILIRUBIN 0.7 mg/dL (0.0-1.0); TOTAL PROTEIN, SERUM 7.2 g/dL (6.4-8.2)
[2024-09-01] MEDS ORDERED: METR-435 PO (23:14)
[2024-09-01] MEDS ORDERED: CIPR500T4 PO (23:14)
[2024-09-01] MEDS ORDERED: ACET-8905 PO (23:14)
[2024-09-01] MEDS ORDERED: IBUP-2213 PO (23:14)
== END 2024-09-01 23:22 | disposition home or self-care (01) ==
LOC: MED 19:28
DX: K57.92 Diverticulitis of intestine, part unspecified, without perforation or abscess without bleeding (principal); N39.0 Urinary tract infection, site not specified; R03.0 Elevated blood-pressure reading, without diagnosis of hypertension; E11.9 Type 2 diabetes mellitus without complications; E03.9 Hypothyroidism, unspecified; Z98.84 Bariatric surgery status; Z79.899 Other long term (current) drug therapy; Z88.0 Allergy status to penicillin; Z88.2 Allergy status to sulfonamides; Z88.8 Allergy status to other drugs, medicaments and biological substances
CPT/HCPCS: 36415; 74176; 80048; 80076; 81001; 81025; 83690; 85025; 87086; 96372; 99285; J1885